=== PATIENT | female | born 1960 | race Caucasian/White ===

== ENCOUNTER 2019-08-06 09:20 | Outpatient (RCR) | payer MEDICAID, SELFPAY | END 2019-08-06 23:59 | disposition home or self-care (01) | LOC: ANHAUDIO 09:20 | PROVIDERS: PCP Internal Medicine; Visit Provider Internal Medicine | DX: Z46.1 Encounter for fitting and adjustment of hearing aid (principal) | CPT/HCPCS: V5160; V5261; V5264 ==

== ENCOUNTER 2020-03-03 09:39 | Outpatient (RCR) | payer MEDICAID, SELFPAY | END 2020-03-03 23:59 | disposition home or self-care (01) | LOC: ANHAUDIO 09:39 | PROVIDERS: PCP Internal Medicine; Visit Provider Internal Medicine | DX: Z46.1 Encounter for fitting and adjustment of hearing aid (principal) | CPT/HCPCS: 99199 ==